=== PATIENT | female | born 1980 | race Caucasian/White ===

== ENCOUNTER 2021-02-17 07:00 | Day surgery (SDC) | payer MEDICAID, SELFPAY ==
[2021-02-17] MEDS ORDERED: SIMETHICONE 40 MG/0.6 ML ML ONE (07:08)
[2021-02-17 07:36] LABS: HCG,QUAL RESULT NEGATIVE (NEGATIVE)
[2021-02-17] MEDS: MIDAZOLAM HCL 5 MG/5 ML VIAL ONE ×4 (08:46→08:54)
[2021-02-17] MEDS: MEPERIDINE 100 MG INJ. 100 MG/ML VIAL ONE ×3 (08:47→09:00)
[2021-02-17] MEDS ORDERED: MIDAZOLAM HCL 5 MG/5 ML VIAL ONE (09:03)
[2021-02-17 13:15] VITALS: BP_SYST 111
== END 2021-02-17 10:30 | disposition home or self-care (01) ==
LOC: SMU 07:00 → SDS 07:00
PROVIDERS: ATTEND Internal Medicine Gastroenterology
DX: K59.00 Constipation, unspecified (principal); K64.8 Other hemorrhoids; K62.5 Hemorrhage of anus and rectum; Z79.899 Other long term (current) drug therapy; Z20.828 Contact with and (suspected) exposure to other viral communicable diseases
CPT/HCPCS: 45378; 84703; 99152; 99153; G0378; J2175; J2250; J7030; U0003

== ENCOUNTER 2023-01-12 06:51 | Day surgery (SDC) | payer MEDICAID ==
[~2023-01-12] VITALS: Ht 170.2 cm; Wt 66.2 kg
[2023-01-12 07:20] LABS: HCG,QUAL RESULT NEGATIVE (NEGATIVE)
[2023-01-12] MEDS ORDERED: SIMETHICONE 40 MG/0.6 ML ML ONE (07:51)
[2023-01-12] MEDS ORDERED: MEPERIDINE 50 MG/ML VIAL ONE (07:51)
[2023-01-12] MEDS ORDERED: MIDAZOLAM HCL 5 MG/5 ML VIAL ONE (07:52)
[2023-01-12 14:59] VITALS: BP_SYST 125
== END 2023-01-12 10:10 | disposition home or self-care (01) ==
LOC: SDS 06:51 → SMU 06:52 → SDS 10:10
PROVIDERS: ATTEND Internal Medicine Gastroenterology
DX: R10.9 Unspecified abdominal pain (principal); K29.50 Unspecified chronic gastritis without bleeding; B96.81 Helicobacter pylori [H. pylori] as the cause of diseases classified elsewhere; K29.80 Duodenitis without bleeding; J45.909 Unspecified asthma, uncomplicated; K44.9 Diaphragmatic hernia without obstruction or gangrene; Z79.899 Other long term (current) drug therapy; Z20.822 Contact with and (suspected) exposure to COVID-19
CPT/HCPCS: 43239; 87426; 87081; 84703; 36415; 88305; 88312; 88313; 99152; G0378; J2250; J2175